=== PATIENT | male | born 1980 | race Caucasian/White ===

== ENCOUNTER 2021-07-25 19:25 | Emergency (ER) | payer OTHER ==
[2021-07-25] MEDS ORDERED: Sodium Chloride 0.9% 1000 ML 1,000 ML IV STA ×2 (19:42→20:02)
[2021-07-25] MEDS ORDERED: Sodium Chloride 0.9% 1000 ML 1,000 ML ONE ×2 (19:43→21:29)
[2021-07-25] MEDS ORDERED: Reglan 10 MG/2 ML IV ONE (20:02)
[2021-07-25] MEDS ORDERED: PROTONIX 40 MG IV IV ONE ×2 (20:02→20:13)
[2021-07-25] MEDS ORDERED: TYLENOL EXTRA STRENGTH 500 MG ONE (20:13)
[2021-07-25] MEDS ORDERED: Reglan 10 MG/2 ML ONE (20:13)
[2021-07-25] MEDS ORDERED: TYLENOL EXTRA STRENGTH 500 MG PO STA (20:17)
[2021-07-25 20:36] LABS: Absolute Neutrophil Ct (ANC) 5.71 (1.4-6.9); BASOPHIL % 0.3 % (0.0-0.4); Basophil (Absolute #) 0.02 (0-0.4); Eosinophil % 2.5 % (0.00-5.0); Eosinophil (Absolute #) 0.19 (0-0.5); Hemoglobin 11.4 gm/dl (12.5-18.0); INR 1.19 (0.8-3.0); Lymphocyte (Absolute #) 0.81 (1.0-4.6); Lymphocytes % 10.6 % (24.0-44.0); Mean Cell Volume 92.1 fl (78-100); Mean Corpuscular Hgb Concent. 32.6 g/dl (32-36); Mean Platelet Volume 9.4 fl (7.5-11.0); Monocyte (Absolute #) 0.94 (0.0-1.3); Monocytes % 12.3 % (0.0-12.0); Neutrophil % 74.3 % (36.0-66.0); PROTIME 14.1 SECONDS (9.4-12.5); Platelet Count 467 K/mm3 (150-450); White Blood Count 7.7 K/mm3 (4.0-10.5)
[2021-07-25 20:40] LABS: ALBUMIN 4.2 g/dL (3.5-5.0); ALKALINE PHOSPHATASE 88 U/L (38-126); AMYLASE 50 U/L (30-110); BLOOD UREA NITROGEN 7 mg/dL (9-20); CHLORIDE 103 mmol/L (98-107); Calcium 9.4 mg/dL (8.4-10.2); Carbon Dioxide 25 mmol/L (22-30); Creatinine 1 0.83 mg/dL (0.66-1.25); EST GLOMERULAR FILTRATION RATE > 60.0 ML/MIN; Glucose 117 mg/dL (74-106); LIPASE 64 U/L (23-300); Potassium 4.2 mmol/L (3.5-5.1); SGOT/AST 33 U/L (17-59); SGPT/ALT 34 U/L (0-50); SODIUM 139 mmol/L (137-145); Total Protein 7.8 g/dL (6.3-8.2)
--- NOTE | 2021-07-25 22:20 | ERPHSYRPT ---
- History of Present Illness Time Seen by Provider: 07/25/21 19:40 Source: patient Exam Limitations: no limitations Patient Subjective Stated Complaint: pt states "I have had chills today. My checked my tempature and it was 104." Triage Nursing Assessment: pt ambulated into the er; pt is axo x4; pt is moaning and restless; c/o vomiting; c/o fever, chills, bodyaches; pt states 3/10; pt states temp of 104 at home; temp of 104.4 on arrival; pt states 2 episodes of vomiting today; pt denies N/D; pt denies abd pain; clear lung sounds in all l obes; pt has wet cough present; hypertension; pt states that he had covid on 06/16/21 Physician History: Patient is a 41-year-old white male who was diagnosed as positive for Covid on June 16 he has had several tests since then that have been negative he says presents with a complaint of vomiting without significant abdominal pain and a fever of 104. He has had chills and sweats continuously for the last couple of days headache nausea vomiting a dry cough no diarrhea. Timing/Duration: day(s) (2) Severity: severe Modifying Factors: Improves With: nothing Associated Symptoms: nausea, diaphoresis, cough, fever Allergies/Adverse Reactions: No Known Drug Allergies Allergy (Verified 07/25/21 19:32) Home Medications: armodafiniL [Nuvigil] 150 mg PO DAILY 03/29/14 [History] Hx Tetanus, Diphtheria Vaccination/Date Given: Yes (2 years ago) Hx Influenza Vaccination/Date Given: No Hx Pneumococcal Vaccination/Date Given: No Travel Risk - International Travel Have you traveled outside of the country in past 3 weeks: Yes If Yes, where;: [place] - Coronavirus Screening Are you exhibiting any of the following symptoms?: Yes Symptoms: Fever, Cough: New Onset, Vomiting/Diarrhea, Headaches/Body Aches/Fatigue Close contact with a COVID-19 positive Pt in past 14-21 Days: No - Vaccine Status Have you recieved a Covid-19 vaccination: No - Review of Systems Constitutional: Fever, Chills, Lethargy, Malaise, Night Sweats, Weakness Eyes: No Symptoms Ears, Nose, & Throat: No Symptoms Respiratory: Cough, No Dyspnea Cardiac: No Symptoms, No Chest Pain, No Edema, No Syncope Abdominal/Gastrointestinal: Nausea, Vomiting, No Abdominal Pain, No Diarrhea Genitourinary Symptoms: No Dysuria Musculoskeletal: No Back Pain, No Neck Pain Skin: No Rash Neurological: No Dizziness, No Focal Weakness, No Sensory Changes Psychological: No Symptoms Endocrine: No Symptoms All Other Systems: Reviewed and Negative - Past Medical History Pertinent Past Medical History: Yes Neurological History: No Pertinent History ENT History: No Pertinent History Cardiac History: No Pertinent History Respiratory History: No Pertinent History Endocrine Medical History: No Pertinent History Musculoskeletal History: Fractures GI Medical History: No Pertinent History History: No Pertinent History Psycho-Social History: Depression - Past Surgical History Past Surgical History: No Musculoskeletal: Orthopedic Surgery Other Surgical History: spinal fusion - Social History Smoking Status: Light tobacco smoker Exposure to second hand smoke: Yes Drug Use: none Patient Lives Alone: No - Nursing Vital Signs Nursing Vital Signs: Initial Vital Signs Temperature 104.4 F 07/25/21 19:33 Pulse Rate 129 H 07/25/21 19:33 Respiratory Rate 24 07/25/21 19:33 Blood Pressure 144/71 07/25/21 19:33 O2 Sat by Pulse Oximetry 97 07/25/21 19:33 Pain Scale Pain Intensity 3 - Physical Exam General Appearance: mild distress Eye Exam: PERRL/EOMI, eyes nml inspection Ears, Nose, Throat Exam: normal ENT inspection, TMs normal, pharynx normal, moist mucous membranes Neck Exam: normal inspection, non-tender, supple, full range of motion Respiratory Exam: normal breath sounds, lungs clear, No respiratory distress Cardiovascular Exam: regular rate/rhythm, normal heart sounds, normal peripheral pulses Gastrointestinal/Abdomen Exam: soft, normal bowel sounds, No tenderness, No mass Back Exam: normal inspection, normal range of motion, No CVA tenderness, No vertebral tenderness Extremity Exam: normal inspection, normal range of motion, pelvis stable Neurologic Exam: alert, oriented x 3, cooperative, normal mood/affect, nml cerebellar function, nml station & gait, sensation nml, No motor deficits Skin Exam: normal color, warm, dry, No rash Lymphatic Exam: No adenopathy SpO2 Interpretation: normal SpO2: 98 O2 Delivery: Room Air - Course Nursing assessment & vital signs reviewed: Yes - CT Exams Chest CT Interpretation: Other (CT of the chest showed no evidence of pulmonary emboli no acute pulmonary pathology a 4 mm right lower lobe perifissural node CT of the chest showed no evidence of pulmonary emboli no evidence for acute pulmonary pathology old granulomatous disease and a 4 mm right lower lobe perifissural nodule) Ordered Tests: Active Orders 24 hr Category Date Time Status IV Insertion STAT Care 07/25/21 20:02 Active CHEST WITH CONTRAST [CT] Stat Exams 07/25/21 20:47 Taken AMYLASE Stat Lab 07/25/21 20:29 Completed BLOOD CULTURE Stat Lab 07/25/21 20:30 Received CBC W DIFF Stat Lab 07/25/21 20:29 Completed CMP Stat Lab 07/25/21 20:29 Completed CULTURE,URINE Stat Lab 07/25/21 20:03 Ordered D-DIMER QUANTITATIVE Stat Lab 07/25/21 20:29 Completed LIPASE Stat Lab 07/25/21 20:29 Completed Lactic Acid Stat Lab 07/25/21 20:20 Completed PROTIME WITH INR Stat Lab 07/25/21 20:29 Completed UA W/RFX UR CULTURE Stat Lab 07/25/21 20:03 Ordered Urine Triage Profile Stat Lab 07/25/21 20:03 Ordered Medication Summary Discontinued Medications Generic Name Dose Route Start Last Admin Trade Name Freq PRN Reason Stop Dose Admin Acetaminophen Confirm 07/25/21 20:13 Acetaminophen 500 Mg Tablet Administered 07/25/21 20:14 Dose 1,000 mg .ROUTE .STK-MED ONE Acetaminophen 1,000 mg 07/25/21 20:17 07/25/21 20:18 Acetaminophen 500 Mg Tablet PO 07/25/21 20:18 1,000 mg Q4H PRN STA Administration Sodium Chloride 1,000 mls @ 999 mls/hr 07/25/21 19:42 07/25/21 21:27 Sodium Chloride 0.9% 1000 Ml IV 07/25/21 20:42 Infused .Q1H1M STA Infusion Sodium Chloride Confirm 07/25/21 19:43 Sodium Chloride 0.9% 1000 Ml Administered 07/25/21 19:44 Dose 1,000 mls @ ud .ROUTE .STK-MED ONE Sodium Chloride 1,000 mls @ 999 mls/hr 07/25/21 20:02 07/25/21 21:38 Sodium Chloride 0.9% 1000 Ml IV 07/25/21 21:02 999 mls/hr .Q1H1M STA Administration Sodium Chloride Confirm 07/25/21 21:29 Sodium Chloride 0.9% 1000 Ml Administered 07/25/21 21:30 Dose 1,000 mls @ ud .ROUTE .STK-MED ONE Metoclopramide HCl 10 mg 07/25/21 20:02 07/25/21 20:14 Metoclopramide Hcl 10 Mg/2 Ml Vial IV 07/25/21 20:03 10 mg STAT ONE Administration Metoclopramide HCl Confirm 07/25/21 20:13 Metoclopramide Hcl 10 Mg/2 Ml Vial Administered 07/25/21 20:14 Dose 10 mg .ROUTE .STK-MED ONE Pantoprazole Sodium 40 mg 07/25/21 20:02 07/25/21 20:14 Pantoprazole 40 Mg Vial IV 07/25/21 20:03 40 mg STAT ONE Administration Pantoprazole Sodium Confirm 07/25/21 20:13 Pantoprazole 40 Mg Vial Administered 07/25/21 20:14 Dose 40 mg IV .STK-MED ONE Lab/Rad Data: Laboratory Result Diagrams 07/25/21 20:29 07/25/21 20:29 Laboratory Results 07/25/21 07/25/21 07/25/21 Range/Units 20:29 20:29 20:29 WBC 7.7 (4.0-10.5) K/mm3 RBC 3.80 L (4.1-5.6) M/mm3 Hgb 11.4 L (12.5-18.0) gm/dl Hct 35.0 L (42-50) % MCV 92.1 (78-100) fl MCH 30.0 (26-32) pg MCHC 32.6 (32-36) g/dl RDW 16.0 H (11.5-14.0) % Plt Count 467 H (150-450) K/mm3 MPV 9.4 (7.5-11.0) fl Gran % 74.3 H (36.0-66.0) % Eos # (Auto) 0.19 (0-0.5) Absolute Lymphs (auto) 0.81 L (1.0-4.6) Absolute Monos (auto) 0.94 (0.0-1.3) Lymphocytes % 10.6 L (24.0-44.0) % Monocytes % 12.3 H (0.0-12.0) % Eosinophils % 2.5 (0.00-5.0) % Basophils % 0.3 (0.0-0.4) % Absolute Granulocytes 5.71 (1.4-6.9) Basophils # 0.02 (0-0.4) PT 14.1 H (9.4-12.5) SECONDS INR 1.19 (0.8-3.0) D-Dimer 1599 H* (215-500) ng/mL Sodium 139 (137-145) mmol/L Potassium 4.2 (3.5-5.1) mmol/L Chloride 103 (98-107) mmol/L Carbon Dioxide 25 (22-30) mmol/L Anion Gap 16.0 H (5-15) MEQ/L BUN 7 L (9-20) mg/dL Creatinine 0.83 (0.66-1.25) mg/dL Estimated GFR > 60.0 ML/MIN Glucose 117 H (74-106) mg/dL Lactic Acid (0.4-2.0) Calcium 9.4 (8.4-10.2) mg/dL Total Bilirubin 0.40 (0.2-1.3) mg/dL AST 33 (17-59) U/L ALT 34 (0-50) U/L Alkaline Phosphatase 88 (38-126) U/L Serum Total Protein 7.8 (6.3-8.2) g/dL Albumin 4.2 (3.5-5.0) g/dL Amylase 50 (30-110) U/L Lipase 64 (23-300) U/L // Range/Units 20:20 WBC (4.0-10.5) K/mm3 RBC (4.1-5.6) M/mm3 Hgb (12.5-18.0) gm/dl Hct (42-50) % MCV (78-100) fl MCH (26-32) pg MCHC (32-36) g/dl RDW (11.5-14.0) % Plt Count (150-450) K/mm3 MPV (7.5-11.0) fl Gran % (36.0-66.0) % Eos # (Auto) (0-0.5) Absolute Lymphs (auto) (1.0-4.6) Absolute Monos (auto) (0.0-1.3) Lymphocytes % (24.0-44.0) % Monocytes % (0.0-12.0) % Eosinophils % (0.00-5.0) % Basophils % (0.0-0.4) % Absolute Granulocytes (1.4-6.9) Basophils # (0-0.4) PT (9.4-12.5) SECONDS INR (0.8-3.0) D-Dimer (215-500) ng/mL Sodium (137-145) mmol/L Potassium (3.5-5.1) mmol/L Chloride (98-107) mmol/L Carbon Dioxide (22-30) mmol/L Anion Gap (5-15) MEQ/L BUN (9-20) mg/dL Creatinine (0.66-1.25) mg/dL Estimated GFR ML/MIN Glucose (74-106) mg/dL Lactic Acid 1.9 (0.4-2.0) Calcium (8.4-10.2) mg/dL Total Bilirubin (0.2-1.3) mg/dL AST (17-59) U/L ALT (0-50) U/L Alkaline Phosphatase (38-126) U/L Serum Total Protein (6.3-8.2) g/dL Albumin (3.5-5.0) g/dL Amylase (30-110) U/L Lipase (23-300) U/L - Progress Progress: improved - Departure Departure Disposition: Home Clinical Impression: Gastroenteritis Condition: Stable Critical Care Time: No Referrals: JOSEPH MCLAIN [Primary Care Provider] - Instructions: Viral Gastroenteritis, Adult (DC) Prescriptions: PANTOPRAZOLE 40 mg Tablet [Protonix 40MG Tablet] 40 mg PO DAILY 10 Days #10 tab Metoclopramide HCl 10 mg [Reglan 10 MG] 10 mg PO Q6H 5 Days #20 tablet
[2021-07-25 22:26] LABS: Appearance CLEAR (CLEAR); Bilirubin NEGATIVE (NEGATIVE); Blood NEGATIVE Ery/ul (0-5); Glucose NEGATIVE (NEGATIVE); Ketones NEGATIVE (NEGATIVE); Leukocyte Esterase NEGATIVE (NEGATIVE); Nitrite NEGATIVE (NEGATIVE); Protein,Urine Dip NEGATIVE (Negative); RBC NONE SEEN /HPF (0-2); Specific Gravity 1.021 (1.005-1.025); Urobilinogen NEGATIVE mg/dL (0-1)
[2021-07-25 22:27] LABS: Bacteria NONE SEEN /HPF (NEGATIVE)
[2021-07-25 22:40] LABS: Amphetamine,Urine NEGATIVE (NEGATIVE); Barbiturate,Urine NEGATIVE (NEGATIVE); Benzodiazepine,Urine NEGATIVE (NEGATIVE); Cocaine,Urine NEGATIVE (NEGATIVE); Opiate,Urine NEGATIVE (NEGATIVE); PCP,Urine NEGATIVE (NEGATIVE); THC,Urine NEGATIVE (NEGATIVE)
[2021-07-25 22:42] LABS: Methadone,Urine NEGATIVE (NEGATIVE)
[2021-07-25 22:57] VITALS: BP 96/59; PULSE 80; O2SAT 97
--- NOTE | 2021-07-26 08:48 | XRAY ---
Indication: Elevated d-dimer. History Covid 19 one month ago. Multiple contiguous axial images obtained through the chest using 80 cc Isovue 370 contrast and PE protocol. Comparison: None There is adequate opacification of the pulmonary arteries. No pulmonary embolus. Heart not enlarged. Aorta is normal in course and caliber. 1.6 x 2.9 cm prominent subcarinal lymph node and small right hilar calcified nodes. Lungs are inflated with small posterior right lower lobe calcified granuloma. No suspicious pulmonary mass, infiltrate, or effusion. Bony thorax intact with minimal degenerative changes throughout the spine and inferior cervical fusion hardware. Limited upper abdomen demonstrates 8 mm left lobe hepatic hemangioma. Impression: 1. Negative pulmonary embolus. No acute cardiopulmonary abnormalities. 2. Nonspecific prominent subcarinal lymph node. 3. Incidental subcentimeter hepatic hemangioma and old granulomatous disease. Comment: Preliminary interpretation made by [facility]. No critical discrepancy.
== END 2021-07-25 22:56 | disposition home or self-care (01) ==
LOC: ED 19:25
DX: K52.9 Noninfective gastroenteritis and colitis, unspecified (principal)
CPT/HCPCS: 36000; 36415; 71260; 80053; 80307; 81001; 82150; 83605; 83690; 85025; 85379; 85610; 86140; 87040; 87086; 96360; 96374; 96375; 99285; A9270-GY

== ENCOUNTER 2021-11-01 14:38 | Emergency (ER) | payer OTHER ==
[2021-11-01 16:56] LABS: Basophil (Absolute #) 0.05 (0-0.4); Eosinophil % 3.6 % (0.00-5.0); Eosinophil (Absolute #) 0.29 (0-0.5); Hematocrit 39.3 % (42-50); Hemoglobin 12.5 gm/dl (12.5-18.0); Lymphocyte (Absolute #) 1.16 (1.0-4.6); Lymphocytes % 14.4 % (24.0-44.0); Mean Cell Volume 89.5 fl (78-100); Mean Corpuscular Hemoglobin 28.5 pg (26-32); Mean Corpuscular Hgb Concent. 31.8 g/dl (32-36); Mean Platelet Volume 8.7 fl (7.5-11.0); Monocyte (Absolute #) 0.45 (0.0-1.3); Monocytes % 5.6 % (0.0-12.0); Neutrophil % 75.8 % (36.0-66.0); Platelet Count 368 K/mm3 (150-450); Red Blood Count 4.39 M/mm3 (4.1-5.6); Red Cell Distribution Width 15.1 % (11.5-14.0); White Blood Count 8.1 K/mm3 (4.0-10.5)
--- NOTE | 2021-11-01 17:01 | ERPHSYRPT ---
- History of Present Illness Time Seen by Provider: 11/01/21 16:20 Source: patient Exam Limitations: no limitations Patient Subjective Stated Complaint: Behavioral problems Triage Nursing Assessment: Patient ambulated back to ED and transferred self to bed. Patient A+O X3. Patient's skin pink, warm and dry. Patient complains of behavioral problems and feeling like he's going to "blow up". Patient states his anxiety is very high. Patient states he denies sucidal or homicidal ideation. Patient states he has been drinking a lot lately causing problems in his marriage. Patient denies pain or discomfort. Physician History: Patient is a 41-year-old male presents to our ED for evaluation of severe psychological distress and anxiety. Patient states he feels like he is going to blow up. He denies homicidal suicidal ideation. Patient states he has a drinking problem. Patient drinks a 12 pack of beer per day. Patient denies a history of withdrawal. Patient states that this is causing financial distress. Patient's is threatening to leave him. Patient does not know what to do. Symptoms are constant. Symptoms are moderate to severe in intensity. No specific worsening improving factors. Patient denies a history of other medical problems. 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 Patient states that family is otherwise healthy his children are healthy. Patient voices no other complaints or concerns at this time. Timing/Duration: today Severity of Symptoms-Max: moderate Severity of Symptoms-Current: mild Context related to: spouse Suicidal thoughts: other (No suicidal homicidal ideation.) Associated Symptoms: denies symptoms Previous symptoms: no prior history Allergies/Adverse Reactions: No Known Drug Allergies Allergy (Verified 11/01/21 16:09) Home Medications: armodafiniL [Nuvigil] 150 mg PO DAILY 03/29/14 [History] Venlafaxine HCl [Venlafaxine HCl ER] 1 tab PO DAILY 11/01/21 [History] Hx Tetanus, Diphtheria Vaccination/Date Given: Yes (2 years ago) Hx Influenza Vaccination/Date Given: No Hx Pneumococcal Vaccination/Date Given: No Immunizations Up to Date: Yes Travel Risk - International Travel Have you traveled outside of the country in past 3 weeks: No - Coronavirus Screening Are you exhibiting any of the following symptoms?: No Close contact with a COVID-19 positive Pt in past 14-21 Days: No - Vaccine Status Have you recieved a Covid-19 vaccination: No - Past Medical History Pertinent Past Medical History: Yes Neurological History: No Pertinent History ENT History: No Pertinent History Cardiac History: No Pertinent History Respiratory History: No Pertinent History Endocrine Medical History: No Pertinent History Musculoskeletal History: Fractures GI Medical History: No Pertinent History History: No Pertinent History Psycho-Social History: Depression - Past Surgical History Past Surgical History: No Musculoskeletal: Orthopedic Surgery Other Surgical History: spinal fusion - Social History Smoking Status: Never smoker Exposure to second hand smoke: No Drug Use: none Patient Lives Alone: No - Review of Systems Constitutional: No Fever, No Chills Eyes: No Symptoms Ears, Nose, & Throat: No Symptoms Respiratory: No Symptoms, No Cough, No Dyspnea Cardiac: No Symptoms, No Chest Pain, No Edema, No Syncope Abdominal/Gastrointestinal: No Symptoms, No Abdominal Pain, No Nausea, No Vomiting, No Diarrhea Genitourinary Symptoms: No Symptoms, No Dysuria Musculoskeletal: No Symptoms, No Back Pain, No Neck Pain Skin: No Symptoms, No Rash Neurological: No Symptoms, No Dizziness, No Focal Weakness, No Sensory Changes Psychological: No Symptoms Endocrine: No Symptoms Hematologic/Lymphatic: No Symptoms Immunological/Allergic: No Symptoms All Other Systems: Reviewed and Negative - Nursing Vital Signs Nursing Vital Signs: Initial Vital Signs Temperature 98.4 F 11/01/21 16:11 Pulse Rate 83 11/01/21 16:11 Respiratory Rate 18 11/01/21 16:11 Blood Pressure 135/96 11/01/21 16:11 O2 Sat by Pulse Oximetry 99 11/01/21 16:11 Pain Scale Pain Intensity 0 - Physical Exam General Appearance: no apparent distress Eyes, Ears, Nose, Throat Exam: normal ENT inspection, TMs normal, pharynx normal, moist mucous membranes Neck Exam: normal inspection, non-tender, supple, full range of motion Respiratory Exam: normal breath sounds, lungs clear, airway intact, No chest tenderness, No respiratory distress Cardiovascular Exam: regular rate/rhythm, normal heart sounds, normal peripheral pulses, No edema Gastrointestinal/Abdominal Exam: soft, normal bowel sounds, No tenderness, No distention Extremities Exam: normal inspection, normal range of motion, No evidence of inju ry, No edema Peripheral Pulses: dorsalis-pedis (R): 2+, dorsalis-pedis (L): 2+ Current Suicidality: denies suicide plan Neurological Exam: alert, neurosurgical nurse practitioner II-XII nml as tested, oriented x 3 Appearance: appropriate appearance, appropriate insight, neat Behavior/Eye Contact/Speech: alert & cooperative, cooperative, good eye contact, normal speech Thoughts/Hallucinations: normal thought pattern, No no apparent hallucination, No auditory hallucinations, No delusions Skin Exam: normal color, warm, dry, No rash SpO2 Interpretation: normal SpO2: 99 O2 Delivery: Room Air - Course Nursing assessment & vital signs reviewed: Yes Ordered Tests: Active Orders 24 hr Category Date Time Status ACETAMINOPHEN Stat Lab 11/01/21 16:45 Completed CBC W DIFF Stat Lab 11/01/21 16:45 Completed CMP Stat Lab 11/01/21 16:45 Completed SALICYLATE Stat Lab 11/01/21 16:45 Completed UA W/RFX UR CULTURE Stat Lab 11/01/21 16:15 Completed Urine Triage Profile Stat Lab 11/01/21 16:15 Completed Lab/Rad Data: Laboratory Result Diagrams 11/01/21 16:45 11/01/21 16:45 Laboratory Results 11/01/21 11/01/21 11/01/21 Range/Units 16:45 16:45 16:15 WBC 8.1 (4.0-10.5) K/mm3 RBC 4.39 (4.1-5.6) M/mm3 Hgb 12.5 (12.5-18.0) gm/dl Hct 39.3 L (42-50) % MCV 89.5 (78-100) fl MCH 28.5 (26-32) pg MCHC 31.8 L (32-36) g/dl RDW 15.1 H (11.5-14.0) % Plt Count 368 (150-450) K/mm3 MPV 8.7 (7.5-11.0) fl Gran % 75.8 H (36.0-66.0) % Eos # (Auto) 0.29 (0-0.5) Absolute Lymphs (auto) 1.16 (1.0-4.6) Absolute Monos (auto) 0.45 (0.0-1.3) Lymphocytes % 14.4 L (24.0-44.0) % Monocytes % 5.6 (0.0-12.0) % Eosinophils % 3.6 (0.00-5.0) % Basophils % 0.6 (0.0-0.4) % Absolute Granulocytes 6.10 (1.4-6.9) Basophils # 0.05 (0-0.4) Sodium 144 (137-145) mmol/L Potassium 3.9 (3.5-5.1) mmol/L Chloride 104 (98-107) mmol/L Carbon Dioxide 27 (22-30) mmol/L Anion Gap 16.7 H (5-15) MEQ/L BUN 8 L (9-20) mg/dL Creatinine 0.77 (0.66-1.25) mg/dL Estimated GFR > 60.0 ML/MIN Glucose 98 (74-106) mg/dL Calcium 8.7 (8.4-10.2) mg/dL Total Bilirubin 0.30 (0.2-1.3) mg/dL AST 27 (17-59) U/L ALT 20 (0-50) U/L Alkaline Phosphatase 91 (38-126) U/L Serum Total Protein 8.4 H (6.3-8.2) g/dL Albumin 4.4 (3.5-5.0) g/dL Urine Color (YELLOW) Urine Appearance (CLEAR) Urine pH (5-6) Ur Specific [place] (1.005-1.025) Urine Protein (Negative) Urine Ketones (NEGATIVE) Urine Blood (0-5) Bj/ul Urine Nitrite (NEGATIVE) Urine Bilirubin (NEGATIVE) Urine Urobilinogen (0-1) mg/dL Ur Leukocyte Esterase (NEGATIVE) Urine WBC (Auto) (0-5) /HPF Urine RBC (Auto) (0-2) /HPF U Epithel Cells (Auto) (FEW) /HPF Urine Bacteria (Auto) (NEGATIVE) /HPF Urine Mucus (Auto) (NEGATIVE) /HPF Urine Culture Reflexed (NO) Urine Glucose (NEGATIVE) mg/dL Salicylates < 1.0 L (2-20) mg/dL Urine Opiates Level NEGATIVE (NEGATIVE) Ur Methadone NEGATIVE (NEGATIVE) Acetaminophen < 10 L (10-30) ug/ml Urine Barbiturates NEGATIVE (NEGATIVE) Ur Phencyclidine (PCP) NEGATIVE (NEGATIVE) Urine Amphetamine NEGATIVE (NEGATIVE) U Benzodiazepine Level NEGATIVE (NEGATIVE) Urine Cocaine NEGATIVE (NEGATIVE) Urine Marijuana (THC) NEGATIVE (NEGATIVE) 11/01/21 Range/Units 16:15 WBC (4.0-10.5) K/mm3 RBC (4.1-5.6) M/mm3 Hgb (12.5-18.0) gm/dl Hct (42-50) % MCV (78-100) fl MCH (26-32) pg MCHC (32-36) g/dl RDW (11.5-14.0) % Plt Count (150-450) K/mm3 MPV (7.5-11.0) fl Gran % (36.0-66.0) % Eos # (Auto) (0-0.5) Absolute Lymphs (auto) (1.0-4.6) Absolute Monos (auto) (0.0-1.3) Lymphocytes % (24.0-44.0) % Monocytes % (0.0-12.0) % Eosinophils % (0.00-5.0) % Basophils % (0.0-0.4) % Absolute Granulocytes (1.4-6.9) Basophils # (0-0.4) Sodium (137-145) mmol/L Potassium (3.5-5.1) mmol/L Chloride (98-107) mmol/L Carbon Dioxide (22-30) mmol/L Anion Gap (5-15) MEQ/L BUN (9-20) mg/dL Creatinine (0.66-1.25) mg/dL Estimated GFR ML/MIN Glucose (74-106) mg/dL Calcium (8.4-10.2) mg/dL Total Bilirubin (0.2-1.3) mg/dL AST (17-59) U/L ALT (0-50) U/L Alkaline Phosphatase (38-126) U/L Serum Total Protein (6.3-8.2) g/dL Albumin (3.5-5.0) g/dL Urine Color YELLOW (YELLOW) Urine Appearance CLEAR (CLEAR) Urine pH 5.0 (5-6) Ur Specific [place] 1.015 (1.005-1.025) Urine Protein NEGATIVE (Negative) Urine Ketones NEGATIVE (NEGATIVE) Urine Blood NEGATIVE (0-5) Bj/ul Urine Nitrite NEGATIVE (NEGATIVE) Urine Bilirubin NEGATIVE (NEGATIVE) Urine Urobilinogen NEGATIVE (0-1) mg/dL Ur Leukocyte Esterase NEGATIVE (NEGATIVE) Urine WBC (Auto) NONE (0-5) /HPF Urine RBC (Auto) NONE (0-2) /HPF U Epithel Cells (Auto) NONE (FEW) /HPF Urine Bacteria (Auto) NONE (NEGATIVE) /HPF Urine Mucus (Auto) SLIGHT (NEGATIVE) /HPF Urine Culture Reflexed NO (NO) Urine Glucose NEGATIVE (NEGATIVE) mg/dL Salicylates (2-20) mg/dL Urine Opiates Level (NEGATIVE) Ur Methadone (NEGATIVE) Acetaminophen (10-30) ug/ml Urine Barbiturates (NEGATIVE) Ur Phencyclidine (PCP) (NEGATIVE) Urine Amphetamine (NEGATIVE) U Benzodiazepine Level (NEGATIVE) Urine Cocaine (NEGATIVE) Urine Marijuana (THC) (NEGATIVE) - Progress Progress: improved Progress Note: [facility] evaluated patient at bedside via telemental consultation. They feel patient is appropriate for discharge. Safety plan was provided. Patient states is ready for discharge. He continues to deny homicidal suicidal ideation. Patient is going to seek help through consultation with [facility] for his drinking. Patient has no history of withdrawals but feels it is interfering with his marriage and may be contributing to his financial woes. Portions of this note were created with voice recognition technology. There may be grammatical, spelling, punctuation or sound alike errors 11/01/21 21:56 Counseled pt/family regarding: lab results, diagnosis, need for follow-up - Departure Departure Disposition: Home Clinical Impression: Anxiety, Excessive drinking alcohol Condition: Stable Critical Care Time: No Referrals: JOSEPH MCLAIN [Primary Care Provider] - Follow up/PCP as directed Additional Instructions: Discharge/Care Plan JOYCURT BELKIS was seen on 11/01/21 in the Emergency Room. The patient was counseled regarding Diagnosis,Lab results, Imaging studies, need for follow up and when to return to the Emergency Room. Prescriptions given: Discharge Note I have spoken with the patient and/or caregivers. I have explained the patient's condition, diagnosis and treatment plan based on the information available to me at this time. I have answered the patient's and/or caregiver's questions and addressed any concerns. The patient and/or caregivers have as good understanding of the patient's diagnosis, condition and treatment plan as can be expected at this point. The vital signs have been stable. The patient's condition is stable and appropriate for discharge from the emergency department. The patient will pursue further outpatient evaluation with the primary care physician or other designated or consulting physician as outlined in the discharge instructions. The patient and/or caregivers are agreeable to this plan of care and follow-up instructions have been explained in detail. The patient and/or caregivers have received these instruction. The patient/and or caregivers are aware that any significant change in condition or worsening of symptoms should prompt an immediate return to this or the closest emergency department or call 911.
[2021-11-01 17:06] LABS: ACETAMINOPHEN < 10 ug/ml (10-30); ALBUMIN 4.4 g/dL (3.5-5.0); ALKALINE PHOSPHATASE 91 U/L (38-126); ANION GAP 16.7 MEQ/L (5-15); BLOOD UREA NITROGEN 8 mg/dL (9-20); CHLORIDE 104 mmol/L (98-107); Calcium 8.7 mg/dL (8.4-10.2); Carbon Dioxide 27 mmol/L (22-30); Creatinine 1 0.77 mg/dL (0.66-1.25); EST GLOMERULAR FILTRATION RATE > 60.0 ML/MIN; Glucose 98 mg/dL (74-106); Potassium 3.9 mmol/L (3.5-5.1); SALICYLATE < 1.0 mg/dL (2-20); SGOT/AST 27 U/L (17-59); SGPT/ALT 20 U/L (0-50); SODIUM 144 mmol/L (137-145); Total Protein 8.4 g/dL (6.3-8.2)
[2021-11-01 17:23] LABS: Amphetamine,Urine NEGATIVE (NEGATIVE); Barbiturate,Urine NEGATIVE (NEGATIVE); Benzodiazepine,Urine NEGATIVE (NEGATIVE); Cocaine,Urine NEGATIVE (NEGATIVE); Methadone,Urine NEGATIVE (NEGATIVE); Opiate,Urine NEGATIVE (NEGATIVE); PCP,Urine NEGATIVE (NEGATIVE); THC,Urine NEGATIVE (NEGATIVE)
[2021-11-01 17:37] LABS: Appearance CLEAR (CLEAR); Bilirubin NEGATIVE (NEGATIVE); Blood NEGATIVE Ery/ul (0-5); Glucose NEGATIVE (NEGATIVE); Ketones NEGATIVE (NEGATIVE); Leukocyte Esterase NEGATIVE (NEGATIVE); Mucus SLIGHT /HPF (NEGATIVE); Nitrite NEGATIVE (NEGATIVE); Protein,Urine Dip NEGATIVE (Negative); Specific Gravity 1.015 (1.005-1.025); Urobilinogen NEGATIVE mg/dL (0-1)
[2021-11-01 21:59] VITALS: BP 131/88; PULSE 78; O2SAT 99
== END 2021-11-01 22:05 | disposition home or self-care (01) ==
LOC: ED 14:38
DX: F41.9 Anxiety disorder, unspecified (principal); F10.10 Alcohol abuse, uncomplicated; Z63.0 Problems in relationship with spouse or partner
CPT/HCPCS: 36415; 80053; 80307; 81001; 85025; 99284